=== PATIENT | female | born 1980 | race Caucasian/White ===

== ENCOUNTER 2019-02-16 19:07 | Inpatient (IN) | payer BC ==
[~2019-02-16 19:07] MED LIST: Buffered Lidocaine 1% SYRIN* 1 ML/SYRINGE INTRADERM ONE; Dinoprostone* 10 MG VAG.SUPP VAGINAL ONE
[2019-02-16] MEDS ORDERED: Penicillin G Potassium IV* 5,000,000 UNITS in NS 0.9% 100 ML* 100 ML IVPB ONE (20:00)
--- NOTE | 2019-02-16 20:20 | HP ---
General Information - Reason for Visit IUP at 40-6/7 here for postdates ripening/induction - General Information Maternal Age: 38 Grav: 2 Para: 0 SAB: 1 IEA: 0 Estimated Due Date: 02/10/19 Determined By: LMP Gestational Age in Weeks/Days: 40-6/7 Maternal Blood Type and Rh: A Positive - Results this Serology/RPR Result: Non-Reactive Rubella Result: Immune HBsAg Result: Negative HIV Result: Negative GBS Culture Result: Positive Past Medical History Delivery History: See Records Delivery History Comment: 02/2018 SAB Current Pertinent Past Medical History: See Records Past Medical History Comment: H/O Migraine Eczema Pertinent Past Surgical History: None Pertinent Family History: See Records Family History Comment: PGM: , [place] PGF: Cancer. , [place] MGM: , Uterine cancer MGF: , [place] - Antepartal Records Antepartal Records: Reviewed, Uncomplicated - Age 38 at JULIA, GBS +, Varicella NI, bilateral pyelectasis - resolved by sono Review of Systems Constitutional: Comfortable CV Complaint: No Respiratory: Shortness of Breath: No Gastrointestinal: No Nausea/Vomiting, Normal Bowel Movement Genitourinary: No Dysuria, No Bleeding, No Leaking Fluid Musculoskeletal: No Complaint, No Epigastric Pain Neurological: No Headache, No Visual Changes Movement: Normal Exam Allergies/Adverse Reactions: Allergies No Known Allergies Allergy (Verified 02/16/19 19:35) BP 119/70 HR 68 RR 20 T 98.3 SpO2 99% - Measurements Height: 5 ft 3 in Weight: 165 lb Weight in lbs: 165.101987 Body Mass Index (BMI): 29.2 Pre- Weight: 129 lb Weight Gained This : 36 lbs and 0 ozs - Exam Breast: Breast Exam Deferred CVA: No CVA Tenderness Extremities: No Edema Heart: Normal Rhythm/Heart Sounds HEENT: No Significant Findings Lungs: Clear Bilaterally Rectal: Rectal Exam Deferred Reflexes: DTR 2+ Thyroid: No Thyromegaly - Abdominal Exam Abdomen Exam: Non-Tender - Ultrasound/Biophysical Profile Ultrasound Status: Not Done Targeted Exam Findings See L&D Outpatient Visit Provider Note for Findings: N/A Estimated Weight: EFW 8lbs by Carrie Cervical Exam: 1cm Effacement: Thick Station: -2 Presenting Part: Vertex Membrane Status: Intact Sterile Speculum Exam: Not done Bleeding/Discharge: None EFM Findings - External Monitor Findings Baseline Heart Rate: 130 External Monitor Findings: Accelerations Present, No Pattern of Variable or Late Decelerations, Variability Moderate, Baseline Stable External Monitor Findings Comment: No evidence of metabolic acidemia Contractions: None Assessment/Plan - Assessment IUP at 40-6/7 here for postdates ripening/induction No evidence of metabolic acidemia GBS +, plan GBS prophylaxis with onset active labor or for spontaneous rupture of membranes Cagle Score 3, unfavorable for induction - Obstetrical Risk Factors Obstetrical Risk Factors: GBS Positive, Post-Dates - Plan Plan: Cervical Ripening, Admit - Anticipate Vaginal Delivery Plan Comment: Admit. PARQ Cervidil for cervical ripening. Pt and FOB agree. Placed at 2008. Pt tolerated well. Monitor per protocol. Remove in 12-18 hours or sooner PRN onset active labor, tachysystole or intolerance. Discussed initiation of GBS prophylaxis with onset active labor or rupture of membranes. Reviewed options for sleep overnight including Tylenol & Benadryl or Nubain & Phenergan. Pt requests one time dose of Tylenol and Benadryl PRN. Encouarge rest overnight. - Date/Time of Admission Date of Admission: 02/16/19 Time of Admission: 19:24
[2019-02-16] MEDS ORDERED: Acetaminophen TAB* 325 MG PO ONE (20:27)
[2019-02-16] MEDS ORDERED: diPHENhydraMINE PO* 50 MG PO PRN (20:28)
[2019-02-16 22:42] LABS: Urine Benzodiazepine Screen None Detected (None Detect); Urine Opiates Screen None Detected (None Detect)
[2019-02-17 02:30] LABS: ABS Eosinophils 0.1 10^3/ul (0-0.6); ABS Lymphocytes 1.6 10^3/ul (1.0-4.8); ABS Monocytes 0.7 10^3/ul (0-0.8); ABS Neutrophils 6.8 10^3/ul (1.5-7.7); Eosinophil % 0.9 %; Hematocrit 35 % (35-47); Lymphocyte % 17.7 %; Mean Corpuscular HGB Conc 34 g/dL (31-36); Mean Corpuscular Hemoglobin 32 pg (27-31); Mean Corpuscular Volume 93 fL (80-97); Mean Platelet Volume 8.6 fL (7.4-10.4); Nucleated Red Blood Cells % 0.1; Platelet Count 264 10^3/uL (150-450); Red Blood Count 3.82 10^6 /uL (3.70-4.87); Red Cell Distribution Width 13 % (10-15); White Blood Count 9.3 10^3/uL (3.5-10.8)
[2019-02-17] MEDS ORDERED: Promethazine INJ(RESTRICTED)* 25 MG/ML 1 ML VIAL IV ONE ×2 (02:36→16:00)
[2019-02-17] MEDS ORDERED: Nalbuphine* 10 MG/ML 1 ML VIAL IV ONE ×2 (02:36→16:00)
--- NOTE | 2019-02-17 02:43 | PN ---
Progress Note - Progress Note Date of Service: 02/17/19 Note: S: Paged by RN to discuss pain relief options. Per RN pt became increasingly uncomfortable so much so that Cervidil was removed at 0045 by RN, IV fluids started and pt now requesting IV Nubain/Phenergan due to pain. RN felt unsure if pt was moving into active labor and if GBS prophylaxis should be started. Denies bloody show. No LOF. Pt able to speak through UCs. Per RN they palpate moderate. O: BP 120/64 HR 67bpm SpO2 99% on RA FHT 125bpm. Moderate variability. +Accels. No decels UCs q 1-3, mild-moderate VE 1cm/70%/vtx -1 A: IUP at 41 weeks here for ripening/induction No evidence of metabolic acidemia Not in active labor P: PARQ Nubain/Phenergan. Order input. Advised RN to hold GBS prophylaxis at this time as no evidence of active labor or ruptured membranes. Re-eval in AM or sooner PRN
[2019-02-17] MEDS ORDERED: Nalbuphine* 10 MG/ML 1 ML VIAL ONE (03:24)
--- NOTE | 2019-02-17 07:01 | PN ---
Progress Note - Progress Note Date of Service: 02/17/19 Note: S: Pt able to sleep well s/p IV Nubain/Phenergan. Still feeling drowsy but reports UCs stronger. S/P SROM to clear fluid at 0330. Has started abx for GBS + O: BP 120/69 HR 67 T 98.9 RR 18 FHT 125bpm. Moderate variability. +Accels. No decels UCs q 1-4 min, mild-moderate VE 3cm/80%/vtx -1, clear fluid A: IUP at 41 weeks in latent labor No evidence of metabolic acidemia GBS +, receiving abx prophylaxis P: Discussed options going forward. Reviewed possibility of IV pitocin augmentation. Pt with strong preference to do labor without an epidural but aware she can request PRN. Enc shower, breakfast. Report to Karon Sutton CNM who will assume care at 0800
[2019-02-17] MEDS: Penicillin G Potassium IV* 2,500,000 UNITS in NS 0.9% 100 ML* 100 ML IVPB SCH ×4 (07:33→19:22)
[2019-02-17] MEDS ORDERED: Influenza VAC *QUAD* 2019-20* 0.5 ML SYRINGE IM ONE (09:00)
[2019-02-17] MEDS ORDERED: Oxytocin in LR* 20 UNITS/1,000 ML BAG IVPB ONE (11:20)
--- NOTE | 2019-02-17 11:29 | PN ---
Progress Note - Progress Note Date of Service: 02/17/19 Note: S: Resting in left side-lying position. Reports ongoing back pain, even between contractions O: B/P 118/86, P: 66, R: 18, T: 98.1 FHR: baseline 135, moderate variability, +accelerations, no decelerations UCs: q 4-5 min, mild to palpation VE deferred as pt's membranes are ruptured and inadequate UC pattern since last exam (/-1 at 0700) A: IUP at 41 0/7 weeks Category I FHR, no evidence of metabolic acidemia GBS positive Varicella nonimmune per lab, will need vaccine PP P: Discussed pain management options, Stacey would like to try nitrous oxide at some point Will begin low-dose pitocin per protocol to achieve adequate contraction pattern Discussed upright and forward-leaning positions as well as runner's lunge for comfort from back pain Reassess PRN Anticipate SVB
[2019-02-17] MEDS: Lactated Ringers 1000 ML Bag* 1,000 ML IV ONE ×2 (11:47→19:14)
[2019-02-17] MEDS ORDERED: Oxytocin in LR* 20 UNITS/1,000 ML BAG IVPB SCH ×2 (12:00→23:45)
--- NOTE | 2019-02-17 13:51 | PN ---
Progress Note - Progress Note Date of Service: 02/17/19 Note: S: Feeling lots of discomfort in her back. RN having difficulty picking up UCs on monitor O: B/P: 111/58, P: 67, R: 18, T: 98.3 FHR: baseline 135, moderate variability, +accelerations, no decelerations UCs: not tracing well on [place], q 2-4 min by palpation. VE: 3.5/80/-1. Clear fluid. Pitocin at 6 mu/min A: IUP at 41 1/7 weeks Category I FHR, no evidence of metabolic acidemia Early active labor P: [place] readjusted by RN. 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
[2019-02-17] MEDS ORDERED: Lactated Ringers 1000 ML Bag* 1,000 ML IV SCH (23:45)
[2019-02-17] MEDS ORDERED: Dibucaine 1% 28.35 GM TUBE PR PRN (23:58)
[2019-02-17] MEDS ORDERED: Acetaminophen TAB* 325 MG PO PRN (23:58)
[2019-02-17] MEDS ORDERED: Glycerin ADULT SUPP PR PRN (23:58)
[2019-02-17] MEDS ORDERED: Varicella Virus Vaccine Live* 0.5 ML VIAL SUBCUT ONE (23:58)
[2019-02-17] MEDS ORDERED: Witch Hazel PAD* JAR TOPICAL PRN (23:58)
--- NOTE | 2019-02-18 00:04 | PROCNOTE ---
[facility] OB: Delivery Note - Delivery A Date of : 02/17/19 Time of : 23:13 [place] Sex: Male Score 1 Minute: 5 Score 5 Minutes: 8 Gestational Age in Weeks and Days at Delivery: 41 Weeks and 0 Days Delivery Method: Spontaneous Vaginal Labor: Induced Did Patient attempt ?: N/A, No Previous Amniotic Fluid: Clear Estimated Blood Loss: 350 Anesthesia/Analgesia: Nitrous-Labor Delivered By: Karon Sutton - Nursery Level of Nursery: Special Care - Perineum Perineal Injury: 1st Degree Perineal Repair: By Delivering Practioner - with 3-0 vicryl rapide - Events Delivery Events of Note: Pitocin During Labor, Supplemental O2 to Mother, Full Course of Antibiotics - for GBS prophylaxis, Pushed > 3 Hours - Additional Delivery Notes Additional Delivery Notes: at 41 0/7 weeks received cervidil for ripening, removed for frequent contractions. SROM to clear fluid at 0330, received pitocin augmentation to achieve adequate contraction pattern. Nitrous oxide and therapeutic rest for pain relief. Progressed to complete and complete, began pushing with good maternal effort at 1946. Slow descent of led to very slow , with decelerations into 70s/80s with UCs. head delivered OA to JD at 2313, loose nuchal x 1 reduced on perineum, shoulders followed easily with next push. Male delivered to maternal abdomen, HR > 110, spontaneous cry. Cord was doubly clamped and cut by infants father once pulsations ceased. to warmer for grunting and nasal flaring, evaluated by RNs and transferred to nursery for further observation and evaluation by custodian supervisor. Apgars 5 and 8. Pitocin increased to 250 cc for active management of 3rd stage of labor. Intact ashly placenta at 2327, fundus firm with massage. Vagina and perineum inspected, first degree laceration noted, repaired under local anesthetic with 3-0 vicryl rapide in the usual fashion. EBL = 350, feeding plan is breast. Mother stable in LDR and stable in NICU at time of note.
[2019-02-18] MEDS: Ibuprofen TAB* 600 MG PO SCH ×4 (00:16→21:42)
--- NOTE | 2019-02-18 00:46 | HP ---
Measurements Current Weight: 74.843 kg Weight in lbs and ozs: 165.214724 Length: 1.6 m Vitals Vital Signs: Vital Signs 02/17/19 02/17/19 02/18/19 02:52 23:45 00:15 Temperature 98.9 F 98.9 F Pulse Rate 76 69 Respiratory 18 18 18 Rate Blood Pressure 118/56 118/56 (mmHg) Medications Home Medications: Home Medications Medication Instructions Recorded Confirmed Type Vitamin TAB* 1 tab PO DAILY 02/16/19 02/16/19 History Inpatient Medications: Medications Acetaminophen (Tylenol Tab*) 650 mg PO Q4H PRN PRN Reason: MILD PAIN or TEMP > 100.4 Dibucaine (Nupercainal 1% Oint*) 1 applic WI QID PRN PRN Reason: DISCOMFORT Last Admin: 02/18/19 00:17 Dose: 1 applic Diphenhydramine HCl (Benadryl Po*) 50 mg PO BEDTIME PRN PRN Reason: SLEEP Last Admin: 02/16/19 22:44 Dose: 50 mg [place] Agitation Sed Scale Document 02/16/19 22:44 [id number] (Rec: 02/16/19 22:44 [id number] [facility]- [id number]) Sedation / Agitation Protocol: RASS Respiratory Rate 18 Agitation/Sedation Score (0) Alert/Calm Agitation/RASS Intervention No Intervention Required Docusate Sodium (Colace Cap*) 100 mg PO TID RENEE Ferrous Gluconate (Fergon Tab*) 324 mg PO BID RENEE Glycerin (Glycerin Adult Supp*) 1 supp WI ONCE PRN PRN Reason: CONSTIPATION Penicillin G Potassium 2,500, (000 units/ Sodium Chloride) 100 mls @ 200 mls/ hr IVPB Q4H RENEE Last Admin: 02/17/19 19:22 Dose: 200 mls/hr Oxytocin (Pitocin In Lr*) 20 units in 1,000 mls @ 0 mls/hr IVPB .PER PARAMETERS RENEE; Protocol Lactated Ringer's (Lactated Ringers 1000 Ml Bag*) 1,000 mls @ 0 mls/hr IV KVO RENEE Oxytocin (Pitocin In Lr*) 20 units in 1,000 mls @ 250 mls/hr IVPB .PER RATE RENEE ; Protocol Ibuprofen (Motrin Tab*) 600 mg PO Q6H RENEE Last Admin: 02/18/19 00:16 Dose: 600 mg MAR: Pain Only Assess/Reassess Document 02/18/19 00:16 [id number] (Rec: 02/18/19 00:17 [id number] [facility] [id number]) Pain Only Assessment/Reassessment Patient Currently Having Pain Yes Pain Assessment Based Upon Patient Report Pain Intensity 2 Pain Scale Used 0-10 Numeric Simethicone (Mylicon Tab*) [facility] 1 pad TOPICAL .PRN PRN PRN Reason: DISCOMFORT Last Admin: 02/18/19 00:17 Dose: 1 pad Results/Investigations Lab Results: 02/16/19 02/17/19 02/17/19 22:10 02:05 02:05 WBC 9.3 RBC 3.82 Hgb 12.0 Hct 35 MCV 93 MCH 32 H MCHC 34 RDW 13 Plt Count 264 MPV 8.6 Neut % (Auto) 73.4 Lymph % (Auto) 17.7 [place] % (Auto) 7.8 Eos % (Auto) 0.9 Baso % (Auto) 0.2 Absolute Neuts (auto) 6.8 Absolute Lymphs (auto) 1.6 Absolute Monos (auto) 0.7 Absolute Eos (auto) 0.1 Absolute Basos (auto) 0.0 Absolute Nucleated RBC 0.0 Nucleated RBC % 0.1 Urine Opiates Screen None detected Ur Barbiturates Screen None detected Ur Phencyclidine Scrn None detected Ur Amphetamines Screen None detected U Benzodiazepines Scrn None detected Urine Cocaine Screen None detected U Cannabinoids Screen None detected Blood Type A Positive Antibody Screen Negative
[2019-02-18] MEDS ORDERED: Lidocaine 1% INJ* 10 MG/ML 30 ML SDV ONE (02:51)
[2019-02-18 06:46] LABS: ABS Lymphocytes 0.7 10^3/ul (1.0-4.8); ABS Monocytes 1.1 10^3/ul (0-0.8); ABS Neutrophils 18.6 10^3/ul (1.5-7.7); Hematocrit 28 % (35-47); Hemoglobin 9.2 g/dL (12.0-16.0); Lymphocyte % 3.7 %; Mean Corpuscular HGB Conc 33 g/dL (31-36); Mean Corpuscular Hemoglobin 31 pg (27-31); Mean Corpuscular Volume 94 fL (80-97); Mean Platelet Volume 8.3 fL (7.4-10.4); Platelet Count 233 10^3/uL (150-450); Red Blood Count 2.93 10^6 /uL (3.70-4.87); Red Cell Distribution Width 13 % (10-15); White Blood Count 20.5 10^3/uL (3.5-10.8)
[2019-02-18] MEDS ORDERED: Simethicone TAB* 80 MG TAB.CHEW PO SCH (08:30)
[2019-02-18] MEDS: Ferrous Gluconate TAB* 324 MG TAB PO SCH ×2 (09:23→21:41)
[2019-02-18] MEDS: Docusate CAP* 100 MG PO SCH ×3 (09:23→21:41)
[2019-02-19] MEDS: Docusate CAP* 100 MG PO SCH (08:16)
[2019-02-19] MEDS: Ibuprofen TAB* 600 MG PO SCH (08:16)
[2019-02-19] MEDS: Ferrous Gluconate TAB* 324 MG TAB PO SCH (08:16)
[2019-02-19 08:26] VITALS: BP 109/62
== END 2019-02-19 11:32 | disposition home or self-care (01) | DRG 560 ==
LOC: MCHOBOUT 19:07 → MCHOB 19:24
PROVIDERS: ADMIT Midwife; ATTEND Midwife
PROC: 3E0P7VZ Introduction of Hormone into Female Reproductive, Via Natural or Artificial Opening (ICD-10-PCS; principal; 2019-02-18)
PROC: 10907ZC Drainage of Amniotic Fluid, Therapeutic from Products of Conception, Via Natural or Artificial Opening (ICD-10-PCS; 2019-02-18)
PROC: 3E033VJ Introduction of Other Hormone into Peripheral Vein, Percutaneous Approach (ICD-10-PCS; 2019-02-18)
PROC: 10E0XZZ Delivery of Products of Conception, External Approach (ICD-10-PCS; 2019-02-18)
PROC: 4A1HXCZ Monitoring of Products of Conception, Cardiac Rate, External Approach (ICD-10-PCS; 2019-02-18)
PROC: 0HQ9XZZ Repair Perineum Skin, External Approach (ICD-10-PCS; 2019-02-18)
DX: O48.0 Post-term pregnancy (principal); Z37.0 Single live birth; O99.824 Streptococcus B carrier state complicating childbirth; O70.0 First degree perineal laceration during delivery; O76 Abnormality in fetal heart rate and rhythm complicating labor and delivery; O69.81X0 Labor and delivery complicated by cord around neck, without compression, not applicable or unspecified; O62.0 Primary inadequate contractions; O90.81 Anemia of the puerperium; Z3A.40 40 weeks gestation of pregnancy; Z23 Encounter for immunization
CPT/HCPCS: 36415; 59200; 80307; 85025; 86850; 86900; 86901; 90686; A9270-GY; J2300; J2540; J2550